=== PATIENT | male | born 1950 | race Caucasian/White ===

== ENCOUNTER → 2022-01-20 | Outpatient (CLI) | payer MEDICARE, OTHER ==
--- NOTE | 2022-01-20 12:06 | Diagnostic Imaging Report ---
PROCEDURE: CT abdomen and pelvis without contrast. TECHNIQUE: Multiple contiguous axial images were obtained through the abdomen and pelvis without the use of intravenous contrast. Auto Exposure Controls were utilized during the CT exam to meet ALARA standards for radiation dose reduction. INDICATION: Newly diagnosed prostate carcinoma. COMPARISON: No prior studies are available for comparison. FINDINGS: The lung bases are clear. The liver is unremarkable. There appears to be a stone within the gallbladder. No biliary ductal dilatation is seen. The pancreas and spleen are unremarkable. No adrenal mass is detected. No renal calculi or hydronephrosis is detected. Aorta is nonaneurysmal. No central or retroperitoneal or mesenteric lymphadenopathy is identified. No iliac or inguinal lymphadenopathy is detected. The bladder and prostate are unremarkable. The bowel loops are normal caliber. There is no ascites or fluid collection. There is a small fat-containing right inguinal hernia. Bony structures are nonacute. No definite osteoblastic lesions are seen. IMPRESSION: 1. Cholelithiasis. 2. Otherwise unremarkable noncontrast CT of the abdomen and pelvis. There is no evidence of abdominal or pelvic lymphadenopathy or metastatic disease. Dictated by: Dictated on workstation # [id number]
--- NOTE | 2022-01-20 16:55 | Diagnostic Imaging Report ---
INDICATION: Newly diagnosed prostate carcinoma. Patient was administered 27.1 mCi technetium 99m MDP intravenously and whole-body imaging was performed after a three-hour delay. There is normal uptake of activity by the axial and appendicular skeleton. There is uptake by the kidneys with excretion to the urinary bladder. No suspicious foci are identified to suggest osseous metastatic disease. IMPRESSION: No scintigraphic evidence of osseous metastatic disease. Dictated by: Dictated on workstation # [id number]
== END ==
LOC: CARD 11:27
PROVIDERS: ATTEND Urology
DX: C61 Malignant neoplasm of prostate (principal); K80.20 Calculus of gallbladder without cholecystitis without obstruction
CPT/HCPCS: 74176; 78306; A9503

== ENCOUNTER 2022-01-31 10:55 | Outpatient (RCR) | payer MEDICARE, OTHER | END 2022-02-11 | disposition home or self-care (01) | LOC: ONC 10:55 | PROVIDERS: ATTEND Internal Medicine Hematology & Oncology | DX: C61 Malignant neoplasm of prostate (principal) | CPT/HCPCS: 99204 ==

== ENCOUNTER 2022-02-21 11:08 | Outpatient (RCR) | payer MEDICARE, OTHER ==
[~2022-02-21] VITALS: Ht 190.5 cm; Wt 90.7 kg
[~2022-02-21 11:08] MED LIST: LEUPROLIDE 22.5 MG SYRINGE (ELIGARD) SQ SCH
== END 2022-03-14 | disposition home or self-care (01) ==
LOC: ONC 11:08
PROVIDERS: ATTEND Internal Medicine Hematology & Oncology
DX: C61 Malignant neoplasm of prostate (principal)
CPT/HCPCS: 99205; 99213

== ENCOUNTER 2022-04-18 09:02 | Outpatient (RCR) | payer MEDICARE, OTHER ==
[2022-04-13 09:17] LABS: BASOPHILS # (AUTO) 0.1 10^3/uL (0.0-0.1); BASOPHILS % (AUTO) 1 % (0-10); EOSINOPHILS # (AUTO) 0.3 10^3/uL (0.0-0.3); EOSINOPHILS % (AUTO) 4 % (0-10); HEMATOCRIT 44 % (40-54); HEMOGLOBIN 15.3 g/dL (13.3-17.7); LYMPHOCYTES # (AUTO) 2.7 10^3/uL (1.0-4.0); LYMPHOCYTES % (AUTO) 43 % (12-44); MEAN CORPUSCULAR HEMOGLOBIN 32 pg (25-34); MEAN CORPUSCULAR HGB CONC 35 g/dL (32-36); MEAN CORPUSCULAR VOLUME 93 fL (80-99); MEAN PLATELET VOLUME 10.3 fL (9.0-12.2); MONOCYTES # (AUTO) 0.6 10^3/uL (0.0-1.0); MONOCYTES % (AUTO) 10 % (0-12); NEUTROPHILS # (AUTO) 2.6 10^3/uL (1.8-7.8); NEUTROPHILS % (AUTO) 42 % (42-75); PLATELET COUNT 226 10^3/uL (130-400); WHITE BLOOD COUNT 6.2 10^3/uL (4.3-11.0)
[2022-04-13 09:34] LABS: BILIRUBIN,TOTAL 0.8 MG/DL (0.1-1.0); CALCIUM 9.6 MG/DL (8.5-10.1); CREATININE SERUM 0.93 MG/DL (0.60-1.30); TOTAL PROTEIN 7.6 GM/DL (6.4-8.2)
== END 2022-05-12 | disposition home or self-care (01) ==
LOC: ONC 09:02
PROVIDERS: ATTEND Internal Medicine Hematology & Oncology
DX: C61 Malignant neoplasm of prostate (principal)
CPT/HCPCS: 36415; 80053; 84153; 85025

== ENCOUNTER 2022-05-17 05:31 | Outpatient (CLI) | payer MEDICARE, OTHER ==
[~2022-05-17] VITALS: Ht 190.5 cm; Wt 90.9 kg
[2022-05-17] MEDS ORDERED: LISI40TA9 PO (12:34)
[2022-05-17] MEDS ORDERED: METO50TA7 PO ×2 (12:34)
[2022-05-17] MEDS ORDERED: AMLO-251 PO (12:34)
== END 2022-05-17 12:46 | disposition home or self-care (01) ==
LOC: PREOP 05:31
PROVIDERS: ATTEND Radiology Radiation Oncology
DX: Z01.818 Encounter for other preprocedural examination (principal); C61 Malignant neoplasm of prostate

== ENCOUNTER 2022-05-24 06:06 | Day surgery (SDC) | payer MEDICARE, OTHER ==
[~2022-05-24] VITALS: Ht 190.5 cm; Wt 90.9 kg
[2022-05-24] VITALS (8 sets, daily range): BP systolic 131–173; BP diastolic 80–99
[~2022-05-24 06:06] MED LIST changes: +AMLO-251 PO; -LEUPROLIDE 22.5 MG SYRINGE (ELIGARD) SQ SCH; +LISI40TA9 PO; +METO50TA7 PO
[2022-05-24] MEDS ORDERED: LACTATED RINGERS 1,000 ML IV PRN (06:15)
--- NOTE | 2022-05-24 06:25 | Progress Note-Pre Operative ---
Pre-Operative Progress Note Date of Available H&P: May 15, 2022 Date H&P Reviewed: May 24, 2022 Time H&P Reviewed: 06:24 History & Physical: H&P Reviewed, No changes noted Pre-Operative Diagnosis: Prostate cancer cT2a, PSA 8.8, [place] 9-10 / GG 5 JULIET MOTLEY MD May 24, 2022 06:25
--- NOTE | 2022-05-24 06:28 | Discharge Inst-Simple/Standard ---
Discharge Inst-Standard Reconcile Patient Problems Problems Reviewed?: Yes Discharge Medications New, Converted or Re-Newed RX: Other (Patient has antibiotic at home - take as directed.) Patient Instructions/Follow Up Plan of Care/Instructions/FU: 1)Follow up at [facility] cancer center for treatment planning scan 06/07/22 at 9:00 a.m. Please drink 1/2 bottle of oral contrast at 8:30 a.m. prior to appointment. Activity as Tolerated: Yes Discharge Diet: No Restrictions JULIET MOTLEY MD May 24, 2022 06:28
[2022-05-24] MEDS ORDERED: fentaNYL INJ 100 MCG/2 ML AMP ONE (07:22)
[2022-05-24] MEDS ORDERED: proPOfol 200 MG/20 ML (DIPRIVAN) VIAL IV ONE (08:16)
[2022-05-24] MEDS ORDERED: ONDANSETRON 4 MG/2 ML (SDV) Z0FRAN ONE (08:16)
[2022-05-24] MEDS ORDERED: SEVOFLURANE (ULTANE) 15 ML INHAL SOLN ONE (08:16)
[2022-05-24] MEDS ORDERED: LIDOCAINE PF 2% 5 ML (XYLOCAINE) VIAL ONE (08:16)
--- NOTE | 2022-05-24 08:29 | Progress Note-Post Operative ---
Post-Operative Progess Note Surgeon (s)/Cigarette Examiner (s) Surgeon JULIET MOTLEY MD Cigarette Examiner: N/A Pre-Operative Diagnosis Prostate cancer cT2a, PSA 8.8, [place] 9-10 / GG 5 Post-Operative Diagnosis Same as preop Procedure & Operative Findings Date of Procedure 05/24/22 Procedure Performed/Findings (1) Placement of fiducial gold seed markers under ultrasound guidance (2) Injection of biodegradable hydrogel prostate-rectal spacer utilizing the [employer] system Anesthesia Type General Estimated Blood Loss Estimated blood loss (mL): Minimal Specimens/Packing Specimens Removed N/A Packing: None JULIET MOTLEY MD May 24, 2022 08:29
--- NOTE | 2022-05-24 10:16 | Anesthesia-General Post-Op ---
General Patient Condition Mental Status/LOC: Same as Preop Cardiovascular: Satisfactory Nausea/Vomiting: Absent Respiratory: Satisfactory Pain: Controlled Complications: Absent Post Op Complications Complications None Follow Up Care/Instructions Patient Instructions None needed. Anesthesia/Patient Condition Patient Condition Patient is doing well, no complaints, stable vital signs, no apparent adverse anesthesia problems. No complications reported per nursing. JASPER LAND CRNA May 24, 2022 10:16
== END 2022-05-24 09:45 | disposition home or self-care (01) ==
LOC: SDC 06:06
PROVIDERS: ATTEND Radiology Radiation Oncology
DX: C61 Malignant neoplasm of prostate (principal); Z87.891 Personal history of nicotine dependence
CPT/HCPCS: 55874; 55876; 87081; A4648; C1889

== ENCOUNTER 2022-06-07 08:52 | Outpatient (RCR) | payer MEDICARE, OTHER ==
[~2022-06-07 08:52] MED LIST changes: +LEUPROLIDE 22.5 MG SYRINGE (ELIGARD) SQ SCH
== END 2022-06-11 | disposition home or self-care (01) ==
LOC: ONC 08:52
PROVIDERS: ATTEND Internal Medicine Hematology & Oncology
DX: Z51.11 Encounter for antineoplastic chemotherapy (principal); C61 Malignant neoplasm of prostate
CPT/HCPCS: 77334; 96402

== ENCOUNTER → 2022-07-01 | Outpatient (CLI) | payer MEDICARE, OTHER ==
[~2022-07-01] MED LIST changes: -LEUPROLIDE 22.5 MG SYRINGE (ELIGARD) SQ SCH
[2022-07-01 16:39] LABS: ABSOLUTE RETIC # 44 10e9/uL (24-90); RETICULOCYTE % 1.17 % (0.50-2.40)
[2022-07-01 17:15] LABS: BAND NEUTROPHILS 27 %; LYMPHOCYTES % (MANUAL) 11 %; METAMYELOCYTES % 3 %; MONOCYTES % (MANUAL) 9 %; NEUTROPHILS % (MANUAL) 50 %; PLATELET CLUMPS SLIGHT
[2022-07-01 17:16] LABS: PLATELET ESTIMATE LOW NORMAL; POIKILOCYTOSIS SLIGHT
== END ==
LOC: GIR 12:12
PROVIDERS: ATTEND Internal Medicine
DX: R79.9 Abnormal finding of blood chemistry, unspecified (principal)
CPT/HCPCS: 85007; 85027; 85045; 85055

== ENCOUNTER → 2022-08-11 | Outpatient (RCR) | payer MEDICARE, OTHER | END | disposition home or self-care (01) | LOC: ONC 07-13 08:24 | PROVIDERS: ATTEND Internal Medicine Hematology & Oncology | DX: Z51.0 Encounter for antineoplastic radiation therapy (principal); C61 Malignant neoplasm of prostate | CPT/HCPCS: 77336; 77385 ==

== ENCOUNTER 2022-08-23 08:48 | Outpatient (RCR) | payer MEDICARE, OTHER ==
[~2022-08-23 08:48] MED LIST changes: +LEUPROLIDE 22.5 MG SYRINGE (ELIGARD) SQ SCH
== END 2022-09-11 | disposition home or self-care (01) ==
LOC: ONC 08:48
PROVIDERS: ATTEND Internal Medicine Hematology & Oncology
DX: Z51.0 Encounter for antineoplastic radiation therapy (principal); C61 Malignant neoplasm of prostate
CPT/HCPCS: 77385; G0463; 77336; 96402

== ENCOUNTER 2022-09-26 08:36 | Outpatient (RCR) | payer MEDICARE, OTHER ==
[2022-09-21 09:43] LABS: BASOPHILS % (AUTO) 1 % (0-10); EOSINOPHILS # (AUTO) 0.2 10^3/uL (0.0-0.3); EOSINOPHILS % (AUTO) 3 % (0-10); HEMATOCRIT 39 % (40-54); LYMPHOCYTES # (AUTO) 2.1 10^3/uL (1.0-4.0); LYMPHOCYTES % (AUTO) 34 % (12-44); MEAN CORPUSCULAR HEMOGLOBIN 32 pg (25-34); MEAN CORPUSCULAR HGB CONC 33 g/dL (32-36); MEAN CORPUSCULAR VOLUME 96 fL (80-99); MEAN PLATELET VOLUME 10.4 fL (9.0-12.2); MONOCYTES # (AUTO) 0.8 10^3/uL (0.0-1.0); MONOCYTES % (AUTO) 12 % (0-12); NEUTROPHILS # (AUTO) 3.2 10^3/uL (1.8-7.8); NEUTROPHILS % (AUTO) 50 % (42-75); PLATELET COUNT 209 10^3/uL (130-400); WHITE BLOOD COUNT 6.3 10^3/uL (4.3-11.0)
[2022-09-21 10:08] LABS: ALBUMIN 4.1 GM/DL (3.2-4.5); BILIRUBIN,TOTAL 0.6 MG/DL (0.1-1.0); CALCIUM 9.3 MG/DL (8.5-10.1); CREATININE SERUM 0.86 MG/DL (0.60-1.30); TOTAL PROTEIN 7.3 GM/DL (6.4-8.2)
[~2022-09-26 08:36] MED LIST changes: -LEUPROLIDE 22.5 MG SYRINGE (ELIGARD) SQ SCH
== END 2022-10-12 | disposition home or self-care (01) ==
LOC: ONC 08:36
PROVIDERS: ATTEND Internal Medicine Hematology & Oncology
DX: C61 Malignant neoplasm of prostate (principal)
CPT/HCPCS: 36415; 80053; 84153; 85025; 99214

== ENCOUNTER 2022-11-13 09:15 | Outpatient (RCR) | payer MEDICARE, OTHER ==
[~2022-11-13 09:15] MED LIST changes: +LEUPROLIDE 22.5 MG SYRINGE (ELIGARD) SQ SCH
== END 2022-12-12 | disposition home or self-care (01) ==
LOC: ONC 09:15
PROVIDERS: ATTEND Internal Medicine Hematology & Oncology
DX: Z51.11 Encounter for antineoplastic chemotherapy (principal); C61 Malignant neoplasm of prostate
CPT/HCPCS: 96402

== ENCOUNTER 2022-12-19 08:29 | Outpatient (RCR) | payer MEDICARE, OTHER ==
[2022-12-14 09:27] LABS: BASOPHILS # (AUTO) 0.1 10^3/uL (0.0-0.1); BASOPHILS % (AUTO) 1 % (0-10); EOSINOPHILS # (AUTO) 0.2 10^3/uL (0.0-0.3); EOSINOPHILS % (AUTO) 4 % (0-10); HEMATOCRIT 41 % (40-54); HEMOGLOBIN 13.7 g/dL (13.3-17.7); LYMPHOCYTES # (AUTO) 2.9 10^3/uL (1.0-4.0); LYMPHOCYTES % (AUTO) 45 % (12-44); MEAN CORPUSCULAR HEMOGLOBIN 32 pg (25-34); MEAN CORPUSCULAR HGB CONC 34 g/dL (32-36); MEAN CORPUSCULAR VOLUME 97 fL (80-99); MEAN PLATELET VOLUME 10.1 fL (9.0-12.2); MONOCYTES # (AUTO) 0.7 10^3/uL (0.0-1.0); MONOCYTES % (AUTO) 11 % (0-12); NEUTROPHILS # (AUTO) 2.6 10^3/uL (1.8-7.8); NEUTROPHILS % (AUTO) 40 % (42-75); PLATELET COUNT 253 10^3/uL (130-400); WHITE BLOOD COUNT 6.4 10^3/uL (4.3-11.0)
[2022-12-14 09:48] LABS: ALBUMIN 4.1 GM/DL (3.2-4.5); BILIRUBIN,TOTAL 0.4 MG/DL (0.1-1.0); CALCIUM 9.7 MG/DL (8.5-10.1); CREATININE SERUM 0.92 MG/DL (0.60-1.30); POTASSIUM 3.5 MMOL/L (3.6-5.0); TOTAL PROTEIN 7.4 GM/DL (6.4-8.2)
[~2022-12-19 08:29] MED LIST changes: -LEUPROLIDE 22.5 MG SYRINGE (ELIGARD) SQ SCH
== END 2023-01-11 | disposition home or self-care (01) ==
LOC: ONC 08:29
PROVIDERS: ATTEND Internal Medicine Hematology & Oncology
DX: C61 Malignant neoplasm of prostate (principal)
CPT/HCPCS: 36415; 80053; 84153; 85025